=== PATIENT | female | born 1980 | race Hispanic/Latino ===

== ENCOUNTER 2018-09-17 05:50 | Day surgery (SDC) | payer OTHER ==
[2018-09-17] MEDS ORDERED: Lidocaine 1% (PF) 30 ML VIAL ONE (06:44)
[2018-09-17] MEDS ORDERED: Fentanyl 100 MCG/2 ML VIAL ONE ×3 (07:01→09:17)
[2018-09-17] MEDS ORDERED: Midazolam HCl 2 mg/2 ml Vial ONE (07:01)
[2018-09-17] MEDS ORDERED: Albuterol Sulfate HFA (OR ONLY) ONE (08:25)
[2018-09-17] MEDS ORDERED: Ondansetron ODT 4 MG TAB ONE (11:15)
--- NOTE | 2018-09-17 13:31 | OP ---
DATE OF PROCEDURE: 09/17/2018 PREOPERATIVE DIAGNOSIS: Right carpal tunnel syndrome. POSTOPERATIVE DIAGNOSIS: Right carpal tunnel syndrome. PROCEDURE PERFORMED: Right endoscopic carpal tunnel release. ANESTHESIA: General. DESCRIPTION OF PROCEDURE: After satisfactory anesthesia was induced in supine position, the patient was prepped and draped in the routine sterile fashion. Right arm was elevated, exsanguinated with an Esmarch bandage, and the tourniquet was inflated to 250 mmHg. A 2 cm transverse incision was made in the proximal wrist flexion crease and carried down through the subcutaneous tissues. Bleeding points were controlled with Bovie cautery. Using sharp and blunt dissection, a distally based flap at the deep forearm fascia was developed and retracted distally. Palmaris longus tendon was retracted radially. Proximal edge of the deep forearm fascia was split under direct visualization with small scissors to make sure there was no proximal impingement of the median nerve. Synovial elevator was then introduced beneath the transverse carpal ligament and the synovium was cleaned from the under surface. Carpal tunnel dilators were inserted. A [employer] endoscopic carpal tunnel system was introduced beneath the transverse carpal ligament in-line with the ring finger. The distal edge of the ligament was easily identified and the ligament was divided in a distal proximal direction by pulling the trigger of the assembly and engaging the knife, withdrawing the scope proximally. This was done in several stages to make sure there was complete division of the transverse carpal ligament, which was documented with the video printer. After withdrawing the scope, a carpal tunnel dilator could be inserted into the carpal tunnel and there was markedly improved passage and subcutaneous position of the instrument. The scope was reintroduced into the carpal tunnel. There was wide separation of the 2 leaves of the transverse carpal ligament. The tourniquet was released after 5 minutes. There was no excessive bleeding and the scope was withdrawn. The wound was then thoroughly irrigated and closed with a running subcuticular 3-0 nylon. Sterile dressing was applied and the patient was immobilized in a Velcro wrist splint. Prior to wound closure, the skin was infiltrated with approximately 3 mL of 1% plain lidocaine. The patient was awakened, taken to recovery room in stable condition. There were no apparent intraoperative complications. The estimated blood loss was negligible. The patient will be discharged home in satisfactory condition, started on ice and elevation, and given written wound care instructions. She was given a prescription for tramadol for pain, 24 tablets. She will be rechecked in my office in 10 to 14 days or sooner if there are any problems prior to that time. Job ID: [id number]
[2018-09-17] MEDS ORDERED: Lidocaine 1% PF 5 ML VIAL ONE (15:59)
[2018-09-17] MEDS ORDERED: PROVENTIL INHALER 6.7 G (200 INHALATIONS) ONE (15:59)
[2018-09-17] MEDS ORDERED: Ondansetron PF 4 MG/2 ML Vial ONE (15:59)
[2018-09-17] MEDS ORDERED: PROPOFOL 200 MG/20 ML VIAL ONE (15:59)
--- NOTE | 2018-09-18 10:29 | HP ---
HISTORY OF PRESENT ILLNESS: The patient is a 38-year-old female inmate at [facility] with several month history of pain and tingling in both hands, right greater than left without injury. 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 She has had persistent pain and tingling, which is worse at night despite restriction of activities, anti-inflammatory medications, and use of braces. PAST MEDICAL HISTORY: The patient is otherwise in good health. MEDICATIONS: She normally takes no routine medications. ALLERGIES: HAS NO KNOWN ALLERGIES. FAMILY HISTORY: Otherwise unremarkable. SOCIAL HISTORY: Otherwise unremarkable. REVIEW OF SYSTEMS: Otherwise unremarkable. PHYSICAL EXAMINATION: GENERAL: Reveals a healthy female. HEENT: Unremarkable. NECK: Supple. CHEST: Clear. HEART: Rate and rhythm. ABDOMEN: Soft, nontender. PELVIC: Deferred. RECTAL: Deferred. BREASTS: Deferred. EXTREMITIES: Pertinent findings related to both wrists. There is no swelling. There is no bony tenderness. There is tenderness over the median nerve bilaterally, right greater than left. There is a positive Tinel sign bilaterally, right greater than left, and positive Phalen test, right greater than left. There is subjective numbness in median nerve distribution, right greater than left. Motor exam appears to be intact. There is good capillary refill. Nerve conduction studies reveal [id number] bilateral carpal tunnel syndrome, right greater than left. IMPRESSION: Bilateral carpal tunnel syndrome, right symptomatic more than left. PLAN: Endoscopic possible open right carpal tunnel release. She will require staged procedure on the left when she has recovered from the right. The nature of the surgery, length of recovery, potential complications such as infection, loss of motion, incomplete relief, nerve injury, recurrence, need for additional treatment, repeat surgery have been discussed in detail. Job ID: [id number]
== END 2018-09-17 12:15 | disposition home or self-care (01) ==
LOC: SDC 05:50
PROVIDERS: ATTEND Orthopaedic Surgery
PROC: 01N54ZZ Release Median Nerve, Percutaneous Endoscopic Approach (ICD-10-PCS; principal; 2018-09-17)
DX: G56.03 Carpal tunnel syndrome, bilateral upper limbs (principal)
CPT/HCPCS: J0131; J0690; J2001; J2250; J2405; J2704; J3010; Q0162

== ENCOUNTER 2019-03-25 06:39 | Day surgery (SDC) | payer OTHER ==
--- NOTE | 2019-03-24 09:13 | HP ---
HISTORY OF PRESENT ILLNESS: The patient is a 39-year-old female, currently an inmate at the [facility], has a greater than one year history of bilateral carpal tunnel syndrome, unresponsive to treatment including splinting and anti-inflammatory medications. She underwent right carpal tunnel release six months ago with good results, but continues to have pain and tingling in the median nerve distribution of her left hand. PAST MEDICAL HISTORY: Please see the old chart. The patient otherwise in good health. MEDICATIONS: She has taken ibuprofen for her current symptoms. She normally takes no routine medications. ALLERGIES: SHE HAS NO KNOWN ALLERGIES. FAMILY HISTORY: Otherwise unremarkable. SOCIAL HISTORY: Otherwise unremarkable. REVIEW OF SYSTEMS: Otherwise unremarkable. PHYSICAL EXAMINATION: GENERAL: Reveals a healthy female. HEENT: Unremarkable. NECK: Supple. CHEST: Clear. HEART: Regular rate and rhythm. ABDOMEN: Soft and nontender. PELVIC: Deferred. RECTAL: Deferred. BREASTS: Deferred. EXTREMITIES: Pertinent findings related to the left wrist. There is no swelling. There is no point tenderness. There is full range of motion. There is a positive Tinel sign and positive Phalen test. There is active numbness in median nerve distribution. There are good distal pulses. Good capillary refill. Motor exam appears to be intact. Nerve conduction studies reveal bilateral carpal tunnel syndrome. IMPRESSION: 1. Left carpal tunnel syndrome. 2. Status post right carpal tunnel release. PLAN: Endoscopic possible open left carpal tunnel release. The nature of the surgery, length of recovery, and potential complications such as infection, loss of motion, incomplete relief, nerve injury, recurrence, need for additional treatment, and repeat surgery have been discussed in detail. Job ID: [id number]
[2019-03-25] MEDS ORDERED: Fentanyl 100 MCG/2 ML VIAL ONE ×2 (08:33→09:35)
[2019-03-25] MEDS ORDERED: HYDROcodone/Acetaminophen 5/325 mg Tablet ONE (12:02)
--- NOTE | 2019-03-25 12:14 | OP ---
DATE OF PROCEDURE: 03/25/2019 ANESTHESIA: General. PREOPERATIVE DIAGNOSIS: Left carpal tunnel syndrome. POSTOPERATIVE DIAGNOSIS: Left carpal tunnel syndrome. PROCEDURE PERFORMED: Left endoscopic carpal tunnel release. DESCRIPTION OF PROCEDURE: After satisfactory anesthesia was induced in a supine position, the patient was prepped and draped in routine manner. The left arm was elevated and exsanguinated with an Esmarch bandage and the tourniquet inflated to 250 mmHg. A 2 cm transverse incision was made at the proximal wrist flexion crease, carried down through the subcutaneous tissues. Bleeding points were controlled with Bovie cautery. Using sharp and blunt dissection, a distally based flap in the deep forearm fascia was developed and retracted distally. Palmaris longus tendon was retracted radially. Proximal edge of the deep forearm fascia was divided under direct visualization with small scissors to make sure there was no proximal impingement of the median nerve. Synovium elevator was introduced beneath the transverse carpal ligament and the synovium cleaned from the under surface. Carpal tunnel dilators were inserted. The [employer] endoscopic carpal tunnel release system was introduced beneath the transverse carpal ligament in line with the ring finger. The distal edge of the ligament was easily identified and then divided in a distal proximal direction by pulling the trigger of the assembly, engaging the knife, and withdrawing the scope proximally. This was done in several stages to make sure there was complete division of the transverse carpal ligament, which was documented with video printer. After withdrawing the scope, the carpal tunnel dilator could be inserted into the carpal tunnel. There was markedly improved passage and subcutaneous position of the instrument. The scope was reintroduced into the carpal tunnel. There was wide separation of the 2 leaves of the transverse carpal ligament. The tourniquet was released after 6 minutes. There was no excessive bleeding. The scope was withdrawn. The wrist was thoroughly irrigated and then closed with running subcuticular 3-0 nylon. A sterile dressing was applied and the patient immobilized in a Velcro wrist splint. She was awakened and taken to recovery room in stable condition. There were no apparent intraoperative complications. ESTIMATED BLOOD LOSS: Negligible. POSTOPERATIVE INSTRUCTIONS: The patient will be discharged in satisfactory condition, instructed on ice elevation, given written wound care instructions. She was given a prescription for tramadol for pain, 15 tablets. She will be rechecked in my office in 2 weeks or sooner with any problems prior to that time. Job ID: [id number]
== END 2019-03-25 12:27 | disposition home or self-care (01) ==
LOC: SDC 06:39
PROVIDERS: ATTEND Orthopaedic Surgery
PROC: 01N54ZZ Release Median Nerve, Percutaneous Endoscopic Approach (ICD-10-PCS; principal; 2019-03-25)
DX: G56.02 Carpal tunnel syndrome, left upper limb (principal); Z98.890 Other specified postprocedural states
CPT/HCPCS: J0690; J3010